=== PATIENT | female | born 1965 | race Caucasian/White ===

== ENCOUNTER 2020-12-15 13:29 | Emergency (ER) | payer OTHER, MEDICAID ==
[~2020-12-15] VITALS: Ht 162.6 cm; Wt 76.2 kg
--- NOTE | 2020-12-15 13:40 | NUR ---
Dr Anaya at the bedside, medical screening in proccess.
[2020-12-15] MEDS ORDERED: LORAZEPAM 1 MG TABLET ONE (13:58)
[2020-12-15] MEDS ORDERED: LORAZEPAM 0.5 MG TABLET PO ONE (14:00)
--- NOTE | 2020-12-15 14:20 | NUR ---
Pt states feeling better, denies shortneess of breath. PT called family member for brain picker.
[2020-12-15 14:35] VITALS: BP 130/58
--- NOTE | 2020-12-15 14:35 | NUR ---
Patient discharged to home in stable condition. Written and verbal after care instructions given. Patient verbalizes understanding of instructions. Stressed follow up or return to ER for worsening s/s.
== END 2020-12-15 14:36 | disposition home or self-care (01) ==
LOC: ER 13:29
DX: F41.9 Anxiety disorder, unspecified (principal); Z86.16 Personal history of COVID-19
CPT/HCPCS: A4663